=== PATIENT | female | born 1990 | race Caucasian/White ===

== ENCOUNTER → 2017-12-24 10:32 | Outpatient (CLI) | payer OTHER, SELFPAY ==
[2017-12-24 12:56] LABS: hCG Titer Quant., Serum 152 mIU/mL (<9 non-preg)
== END ==
PROVIDERS: Visit Provider Obstetrics & Gynecology
DX: O20.0 Threatened abortion (principal)
CPT/HCPCS: 36415; 84702

== ENCOUNTER → 2017-12-26 16:05 | Outpatient (CLI) | payer OTHER, SELFPAY ==
[2017-12-26 17:28] LABS: hCG Titer Quant., Serum 34 mIU/mL (<9 non-preg)
== END ==
PROVIDERS: Visit Provider Obstetrics & Gynecology
DX: O20.0 Threatened abortion (principal)
CPT/HCPCS: 36415; 84702

== ENCOUNTER → 2018-07-12 15:16 | Outpatient (CLI) | payer OTHER, SELFPAY ==
[2018-07-12 14:35] VITALS: BMI 20.3
[2018-07-12 16:12] LABS: Absolute Lymphocyte Count 2.26 X10^3/ul (0.83-4.51); Absolute Neutrophil Count 6.8 X10^3/uL (2.0-7.7); Basophil# 0.02 X10^3/uL; Basophil% 0.2 % (0-1); Eosinophil# 0.12 X10^3/uL; Eosinophils% 1.2 % (0-5); Hematocrit 38.3 % (37-47); Hemoglobin 13.8 g/dl (12.0-15.0); Lymphocyte # 2.26 X10^3/ul (4.0); Lymphocyte % 22.3 % (19-41); Mean Corpuscular Hgb 32.1 pg (27.0-32.0); Mean Corpuscular Volume 89.1 fL (81-99); Mean Platelet Vol. 9.3 fl (6.2-12.0); Monocyte% 8.9 % (0-10); Platelet Count 197 K/mm3 (150-450); RBC Distribution Width CV 11.2 % (11.6-14.6); RBC Distribution Width SD 35.3 fl (35.1-43.9); White Blood Count 10.1 K/mm3 (4.4-11.0)
[2018-07-12 16:28] LABS: POSITIVE COUNT NO; POSITIVE DIFFERENTIAL NO; POSITIVE MORPHOLOGY NO
[2018-07-12 17:04] LABS: HIV - WCH Non-Reactive (Nonreactive); Rubella IgG 394.3 IU/mL
[2018-07-12 20:50] LABS: Chlamydia Trachomatis by PCR Negative (Negative); Neisserai gonorrhoeae by PCR Negative (Negative); Probe Check PASS; Sample Adequacy Control PASS; Specimen Processing Control PASS
[2018-07-15 14:29] LABS: HEPATITIS B SURFACE AG Negative (Negative)
[2018-07-19 04:54] LABS: Rapid Plasmin Reagin (RPR) NONREACTIVE (NONREACTIVE)
== END ==
PROVIDERS: Referring Provider Obstetrics & Gynecology; Visit Provider Obstetrics & Gynecology
DX: Z34.90 Encounter for supervision of normal pregnancy, unspecified, unspecified trimester (principal)
CPT/HCPCS: 36415; 85025; 86592; 86703; 86762; 86850; 86900; 87086; 87088; 87340; 87491; 87591

== ENCOUNTER → 2018-08-08 16:57 | Outpatient (CLI) | payer OTHER, SELFPAY ==
[2018-08-08 15:58] VITALS: BMI 20.3
== END ==
PROVIDERS: Referring Provider Nurse Practitioner Women's Health; Visit Provider Nurse Practitioner Women's Health
DX: R82.79 Other abnormal findings on microbiological examination of urine (principal)
CPT/HCPCS: 87086

== ENCOUNTER → 2018-11-08 11:26 | Outpatient (CLI) | payer OTHER, SELFPAY ==
[2018-11-08 11:04] VITALS: BMI 20.3
[2018-11-08 12:41] LABS: Absolute Lymphocyte Count 1.72 X10^3/ul (0.83-4.51); Absolute Neutrophil Count 7.7 X10^3/uL (2.0-7.7); Basophil# 0.01 X10^3/uL; Basophil% 0.1 % (0-1); Eosinophil# 0.08 X10^3/uL; Eosinophils% 0.8 % (0-5); Hematocrit 33.7 % (37-47); Hemoglobin 11.4 g/dl (12.0-15.0); Lymphocyte # 1.72 X10^3/ul (4.0); Lymphocyte % 16.3 % (19-41); Mean Corp Hgb Conc 33.8 g/gl (32-36); Mean Corpuscular Hgb 32.1 pg (27.0-32.0); Mean Corpuscular Volume 94.9 fL (81-99); Mean Platelet Vol. 9.4 fl (6.2-12.0); Monocyte# 0.99 X10^3/uL; Monocyte% 9.4 % (0-10); Neutrophil # 7.69 X10^3/uL (2.7-7.7); Neutrophil % 73.1 % (47-70); Platelet Count 161 K/mm3 (150-450); RBC Distribution Width CV 11.6 % (11.6-14.6); RBC Distribution Width SD 39.9 fl (35.1-43.9); Red Blood Count 3.55 M/mm3 (4.2-5.4); White Blood Count 10.5 K/mm3 (4.4-11.0)
[2018-11-08 12:43] LABS: POSITIVE COUNT NO; POSITIVE DIFFERENTIAL NO; POSITIVE MORPHOLOGY NO
[2018-11-08 13:04] LABS: Glucose Challenge Gest 1H 50g 99 mg/dL (70-140)
== END ==
PROVIDERS: Referring Provider Obstetrics & Gynecology; Visit Provider Obstetrics & Gynecology
DX: Z34.92 Encounter for supervision of normal pregnancy, unspecified, second trimester (principal)
CPT/HCPCS: 36415; 82950; 85025; 86850; 86900

== ENCOUNTER → 2019-01-09 | Outpatient (CLI) | payer OTHER, SELFPAY ==
[2019-01-09 10:25] VITALS: BMI 20.3
== END | disposition home or self-care (01) ==
LOC: LABSPEC 16:27
PROVIDERS: Referring Provider Nurse Practitioner Women's Health; Visit Provider Nurse Practitioner Women's Health
DX: Z34.90 Encounter for supervision of normal pregnancy, unspecified, unspecified trimester (principal)
CPT/HCPCS: 87081

== ENCOUNTER 2019-02-09 06:09 | Inpatient (IN) | payer OTHER, SELFPAY ==
[2019-02-07 11:37] VITALS: BMI 25.0
[2019-02-09 04:39] VITALS: BMI 25.5
[2019-02-09] MEDS: Lactated Ringers 1,000 ML 50 ML IV ×2 (06:15→08:04)
[2019-02-09 07:10] LABS: Absolute Lymphocyte Count 1.22 X10^3/ul (0.83-4.51); Absolute Neutrophil Count 10.5 X10^3/uL (2.0-7.7); Basophil# 0.01 X10^3/uL; Basophil% 0.1 % (0-1); Eosinophil# 0.02 X10^3/uL; Eosinophils% 0.2 % (0-5); Hematocrit 31.6 % (37-47); Hemoglobin 10.2 g/dl (12.0-15.0); Lymphocyte # 1.22 X10^3/ul (4.0); Lymphocyte % 9.4 % (19-41); Mean Corp Hgb Conc 32.3 g/gl (32-36); Mean Corpuscular Hgb 25.7 pg (27.0-32.0); Mean Corpuscular Volume 79.6 fL (81-99); Mean Platelet Vol. 9.4 fl (6.2-12.0); Monocyte# 1.22 X10^3/uL; Monocyte% 9.4 % (0-10); Neutrophil # 10.48 X10^3/uL (2.7-7.7); Neutrophil % 80.6 % (47-70); Platelet Count 165 K/mm3 (150-450); RBC Distribution Width CV 13.8 % (11.6-14.6); RBC Distribution Width SD 39.9 fl (35.1-43.9); Red Blood Count 3.97 M/mm3 (4.2-5.4)
[2019-02-09 07:17] LABS: POSITIVE COUNT NO; POSITIVE DIFFERENTIAL NO; POSITIVE MORPHOLOGY NO
--- NOTE | 2019-02-09 07:30 | PCM.HP.OB ---
- Problem List (1) Rh negative state in antepartum period Status: Acute Comment: rhogam at 28 weeks (2) Status: Acute Qualifiers: Comment: carrier, genetic, and ntd screening declined. normal anatomy scan. (3) Supervision of normal Status: Acute Qualifiers: Comment: PRR 02/06/19 boy surprise Yaya History Date of Admission: 02/09/19 Final JARRED: 02/06/19 Gestational age: 40 Weeks and 3 Days History of this : This is a 28 year-old, at 40 weeks gestational age presents IAL 5 cm dilated. she denies any lof admits good fm. Allergies No Known Allergies Allergy (Verified 02/09/19 04:40) Home Medications: Home Medications vitamin#30 30 mg iron-10 mg iron-folic acid 1 mg-omg3 capsule 1 cap PO DAILY cap 07/12/18 Smoking Status: Never smoker Alcohol: None Number of Fetus(es): 1 Heart Tracin moderate variability reactive no decelerations category I tracing [place]: regular History Past Pregnancies: Past Pregnancies Delivery Date Name GA/Weeks Outcome Route Weight Gender Labor Length Anesthesia Delivery Location Provider FOB Labs: Mom's Labs & Results 02/09/19 02/09/19 06:25 06:25 WBC 13.0 H RBC 3.97 L Hgb 10.2 L Hct 31.6 L MCV 79.6 L MCH 25.7 L MCHC 32.3 RDW 13.8 RDW Differential 39.9 Plt Count 165 MPV 9.4 Immature Gran % (Auto) 0.300 Neut % (Auto) 80.6 H Lymph % (Auto) 9.4 L Allen % (Auto) 9.4 Eos % (Auto) 0.2 Baso % (Auto) 0.1 Absolute Neuts (auto) 10.5 H Absolute Lymphs (auto) 1.22 Total Counted Not Reportable Blood Type Pending Antibody Screen Pending Course Did the patient receive Yes care? Labs Blood Type: O RH: NEGATIVE RPR/VDRL/Syphilis Nonreactive Rubella status Immune HbSAg Negative Date Done: 07/12/18 Chlamydia Negative Gonorrhea Negative HIV/AIDS Non-Reactive Group B Strep: Negative Current Obstetrical History Gestational Diabetes No Incompetent Cervix No Infertility No IUGR No Macrosomia No Hypertension/Pre-eclampsia No Placenta Previa/Abruption No PTL/PROM No Uterine anomaly No Oligohydramnios No Polyhydramnios No Multiple gestation No Past Medical History Asthma No Diabetes No Hypertension No Heart disease No Mitral valve prolapse No Neurologic/Seizure disorder/ No Migraines Kidney disease No Liver disease No Varicosities No Clotting disorders/Hx of DVT No Thyroid Dysfunction No Other medical diseases No Psychiatric disorders No Major trauma No Abnormal PAP smear No Sleep apnea No Mammogram in the last 2 years No Social History Marital Status: Alleged father Yaya Dickson Hx Smoking No Smoking Status Never smoker Expected Delivery Method: Spontaneous Vaginal Review of Systems Constitutional: Denies: Fever, Malaise Eyes: Denies: Blurred vision, Vision Change HEENT: Denies: Head Aches, Visual Changes Cardiovascular: Denies: Chest Pain, Palpitations Respiratory: Denies: Cough, Shortness of Breath, Wheezing Gastrointestinal: Denies: Abdominal Pain, Diarrhea, Nausea, Vomiting Genitourinary: Denies: Dysuria, Hematuria Musculoskeletal: Denies: Joint Pain, Muscle pain Skin: Denies: Lesions, Rash Neurological: Denies: Blurred vision, Focal weakness, Headaches Psychiatric: Denies: Anxiety, Depression Endocrine: Denies: Heat/ Cold Intolerance Hematologic/ Lymphatic: Denies: Easy Bruising, Easy Bleeding Physical Exam General: Alert, Cooperative, No apparent distress HEENT: Atraumatic, Normocephalic. Negative for: Thyromegaly, Lymphadenopathy Cardiovascular: Regular rate Lungs: Normal air movement Abdomen: Soft, Non Tender, Gravid Neurological: Deep Tendon Reflexes 2+/4 and Symmetrical, Neuro grossly intact. Negative for: Clonus SERVICE LINE COORDINATOR: Normal external genitalia. Negative for: Vulvar lesions Estimated gestational size: Appropriate for gestational size Presentation: Cephalic Cervix Dilation (cm): 5 Assessment/Plan All Active Problems (Last Reviewed 02/07/19 @ 11:37 by Luciana Durant) Urine culture positive (Acute) Rh negative state in antepartum period (Acute) (Acute) Supervision of normal (Acute) Normal Anatomy scan (Resolved) This is a 28 year-old, at 40 weeks gestational age prsents IAL. Patient presents IAL, plan expectant management for , pitocin/AROM PRN if needed. Pain management: Plans epidural. GBS negative. Management of any complications: Rh- will give RhoGam if indicated I have reviewed the [facility] and made any clinically relevant updates.
[2019-02-09] MEDS: fentaNYL-bupivacaine (epidural) 100 ML BAG EPIDURAL (08:03)
--- NOTE | 2019-02-09 12:44 | PCM.OPRPT ---
Problem List (1) Rh negative state in antepartum period Status: Acute Comment: rhogam at 28 weeks (2) Status: Acute Qualifiers: Comment: carrier, genetic, and ntd screening declined. normal anatomy scan. (3) Supervision of normal Status: Acute Qualifiers: Comment: PRR 02/06/19 boy surprise Yaya Vaginal Delivery Maternal Presentation: Active Labor 40w3d Amniotic Membrane Rupture Type: Artificial Amniotic Fluid Description: Clear Final JARRED: 02/06/19 Gestational age: 40 Weeks and 3 Days Date of Procedure: 02/09/19 Pre-Operative Diagnosis: ial Post-Operative Diagnosis: same Surgery/ Procedure Performed: Spontaneous Vaginal Delivery Type of Anesthesia: Epidural Description of Procedure: Patient began pushing and delivered the head in the NENA presentation. The head was delivered atraumatically. The anterior and posterior shoulders delivered without complication followed by the rest of the infant and the was placed on the maternal abdomen. Delayed cord clamping was employed for approximately 60 seconds. Cord was clamped and cut and gentle traction was applied to the cord and the placenta delivered spontaneously immediately following it was noted to be intact with three-vessel cord. The perineum and vagina were inspected and noted to have a first degree perineal laceration repaired in the usual fashion with 3-0 vicryl rapide. EBL was 300 cc. Patient and tolerated delivery well. Presentation: NENA Placental Delivery Description: Spontaneous Placenta Disposition: [facility] Cord Entanglement: None Estimated Blood Loss: 300 Infant A gender: Male Episiotomy Description: None Laceration: Perineal Extension/lac, 1st degree Medications given after delivery: IV Pitocin Complications: None
[2019-02-09] MEDS: Oxytocin 30 units/NS 500 ml 30 UNITS/500 ML IV.SOLN 334 UNITS IV (13:25)
[2019-02-09] MEDS: Oxytocin 30 units/NS 500 ml 30 UNITS/500 ML IV.SOLN 167 UNITS IV (13:55)
[2019-02-09] MEDS: 0.9% Saline Lock 10 ML Syringe IV (15:00)
[2019-02-09 20:00] VITALS: BP 120/75; PULSE 69; RESP 16; TEMP 37
[2019-02-09] MEDS: Naproxen 250 MG Tablet 500 MG PO (23:29)
[2019-02-09 23:30] VITALS: BP 103/63; PULSE 75; RESP 16; TEMP 37.4
[2019-02-10 04:00] VITALS: BP 122/68; PULSE 77; RESP 16; TEMP 36.9
--- NOTE | 2019-02-10 07:36 | PCM.PN.OB ---
Subjective: doing well no complaints pain controlled no CP SOB N V ambulating well tolerating po lochia moderate, going well - Physical Exam General: Alert, Oriented x3 Abdomen: Soft, Non Tender, Non-Distended, - - FF at U; normal lochia Vital Signs Temp Pulse Resp BP 98.4 F 77 16 122/68 H 02/10/19 04:00 02/10/19 04:00 02/10/19 04:00 02/10/19 04:00 Weight: 158 lb 3.2 oz Body Mass Index (BMI) 25.5 Intake and Output for Last 24 Hours 02/08/19 02/09/19 02/10/19 23:59 23:59 23:59 Intake Total 2460 / 2460 Output Total 2400 / 2400 Balance 60 / 60 Laboratory Tests Past 24 Hrs 02/09/19 02/09/19 06:25 17:05 Blood Type O NEGATIVE Antibody Screen NEGATIVE Screen NEGATIVE Baby's Blood Type O POSITIVE Baby's JEROD NEGATIVE Medical Necessity - Tobacco Use Smoking Status: Never smoker Assessment/Plan All Active Problems (Last Reviewed 02/07/19 @ 11:37 by Luciana Durant) Urine culture positive (Acute) Rh negative state in antepartum period (Acute) (Acute) Supervision of normal (Acute) Normal Anatomy scan (Resolved) s/p PPD # 2 1. routine post delivery care 2. breast feeding- support given 3. rh negative-rhogam candidate 4. rubella immune
[2019-02-10 08:00] VITALS: BP 112/77; PULSE 71; RESP 14; TEMP 36.4
[2019-02-10] MEDS: Naproxen 250 MG Tablet 500 MG PO (08:23)
[2019-02-10] MEDS: Senna/Docusate Sodium 1 Tablet PO (10:40)
[2019-02-10 11:44] VITALS: BP 110/76; PULSE 125; RESP 14; TEMP 36.7
[2019-02-10] MEDS: Acetaminophen 500 MG Tablet 1000 MG PO (15:42)
[2019-02-10 20:25] VITALS: BP 114/73; PULSE 61; RESP 18; TEMP 37.3
[2019-02-11 02:20] VITALS: BP 114/63; PULSE 63; RESP 18; TEMP 36.9
--- NOTE | 2019-02-11 07:38 | PCM.PN.OB ---
Subjective: doing well no complaints pain controlled no CP SOB N V ambulating well tolerating po lochia moderate, going well - Physical Exam General: Alert, Oriented x3 Abdomen: Soft, Non Tender, Non-Distended, - - FF below U Vital Signs Temp Pulse Resp BP 98.4 F 63 18 114/63 02/11/19 02:20 02/11/19 02:20 02/11/19 02:20 02/11/19 02:20 Oxygen Delivery Method Room Air Weight: 158 lb 3.2 oz Body Mass Index (BMI) 25.5 Intake and Output for Last 24 Hours 02/09/19 02/10/19 02/11/19 23:59 23:59 23:59 Intake Total 2460 / 2460 Output Total 2400 / 2400 Balance 60 / 60 Medical Necessity - Tobacco Use Smoking Status: Never smoker Assessment/Plan All Active Problems (Last Reviewed 02/07/19 @ 11:37 by Luciana Durant) Urine culture positive (Acute) Rh negative state in antepartum period (Acute) (Acute) Supervision of normal (Acute) Normal Anatomy scan (Resolved) s/p PPD # 2 1. routine post delivery care 2. breast feeding- support given 3. rh negative 4. rubella immune 5. Home today
--- NOTE | 2019-02-11 07:39 | DCINST_ITS ---
Additional Instructions: If you experience any of the following, contact your healthcare provider. * Bleeding that soaks a pad every hour for 2 hours * Fever 100.4 or higher * Unrelieved incision or abdominal pain * Swelling, redness, discharge or bleeding from your incision or episiotomy site * Your incision begins to separate * Problems urinating (including inability to urinate or burning while urinating). * Visual changes * Severe headache * Flu-like symptoms * Pain or redness in one of both of your breasts * Pain, warmth, tenderness or swelling in your legs, especially the calf area * Frequent nausea and vomiting * Symptoms of depression or anxiety If you experience any of the following, call 911 or go to the nearest Emergency Room. * Chest pain * Problems breathing * Seizure activity * Partial or complete paralysis of a body part, slurred speech, weakness or drooping of the face, or a sudden inability to walk or hold your balance Allergies/Adverse Reactions: Allergies No Known Allergies Allergy (Verified 02/09/19 04:40) Medications to take at Discharge vitamin#30 30 mg iron-10 mg iron-folic acid 1 mg-omg3 capsule 1 cap PO DAILY cap 07/12/18 Primary Care Physician: Care Physician,No Primary [Primary Care Provider] - Test Results: Test results from this visit will be discussed in further detail at your follow- up appointment, if applicable.
--- NOTE | 2019-02-11 07:39 | PCM.DCVAG ---
Additional Instructions: If you experience any of the following, contact your healthcare provider. Bleeding that soaks a pad every hour for 2 hours Fever 100.4 or higher Unrelieved incision or abdominal pain Swelling, redness, discharge or bleeding from your incision or episiotomy site Your incision begins to separate Problems urinating (including inability to urinate or burning while urinating). Visual changes Severe headache Flu-like symptoms Pain or redness in one of both of your breasts Pain, warmth, tenderness or swelling in your legs, especially the calf area Frequent nausea and vomiting Symptoms of depression or anxiety If you experience any of the following, call 911 or go to the nearest Emergency Room. Chest pain Problems breathing Seizure activity Partial or complete paralysis of a body part, slurred speech, weakness or drooping of the face, or a sudden inability to walk or hold your balance Allergies/Adverse Reactions: Allergies No Known Allergies Allergy (Verified 02/09/19 04:40) Medications to take at Discharge vitamin#30 30 mg iron-10 mg iron-folic acid 1 mg-omg3 capsule 1 cap PO DAILY cap 07/12/18 Primary Care Physician: Care Physician,No Primary [Primary Care Provider] - Test Results: Test results from this visit will be discussed in further detail at your follow-up appointment, if applicable.
[2019-02-11] MEDS: Senna/Docusate Sodium 1 Tablet PO (08:51)
[2019-02-11] MEDS: Naproxen 250 MG Tablet 500 MG PO (08:52)
[2019-02-11 08:55] VITALS: BP 112/67; PULSE 73; RESP 20; TEMP 37.4; O2SAT 99
== END 2019-02-11 11:00 | disposition home or self-care (01) | DRG 807 ==
LOC: WP 06:17 → WPOUT 02-11 07:26
PROVIDERS: Admitting Provider Obstetrics & Gynecology; Referring Provider Obstetrics & Gynecology; Visit Provider Obstetrics & Gynecology
DX: O48.0 Post-term pregnancy (principal); Z37.0 Single live birth; Z3A.40 40 weeks gestation of pregnancy; O70.0 First degree perineal laceration during delivery
CPT/HCPCS: 59025; 59050; 85025; 85461; 86850; 86900; 90384; 99218; J7120; A4216; G0378; J2790

== ENCOUNTER → 2019-11-25 | Outpatient (CLI) | payer OTHER, SELFPAY ==
[2019-11-25 09:19] VITALS: BMI 25.5
[2019-11-25 09:52] LABS: Absolute Lymphocyte Count 1.37 X10^3/uL (0.83-4.51); Absolute Neutrophil Count 4.2 X10^3/uL (2.0-7.7); Basophil# 0.02 X10^3/uL; Basophil% 0.3 % (0-1); Eosinophil# 0.14 X10^3/uL; Eosinophils% 2.2 % (0-5); Hematocrit 38.1 % (37-47); Hemoglobin 13.1 g/dL (12.0-15.0); Lymphocyte # 1.37 X10^3/ul (4.0); Lymphocyte % 21.6 % (19-41); Mean Corp Hgb Conc 34.4 g/dL (32-36); Mean Corpuscular Hgb 30.9 pg (27.0-32.0); Mean Corpuscular Volume 89.9 fL (81-99); Mean Platelet Vol. 8.9 fl (6.2-12.0); Monocyte# 0.57 X10^3/uL; NRBC Flagged by Analyzer 0 % (0-5); Neutrophil # 4.24 X10^3/uL (2.7-7.7); Neutrophil % 66.7 % (47-70); Platelet Count 151 K/mm3 (150-450); RBC Distribution Width CV 11.9 % (11.6-14.6); RBC Distribution Width SD 38.7 fl (35.1-43.9); Red Blood Count 4.24 M/mm3 (4.2-5.4); White Blood Count 6.4 K/mm3 (4.4-11.0)
[2019-11-25 11:06] LABS: HIV - WCH Non-Reactive (Nonreactive); Hepatitis B Surface Antigen Non-Reactive (Nonreactive); Hepatitis C Antibody Non-Reactive (Nonreactive); Rubella IgG 263.1 IU/mL
[2019-11-25 13:06] LABS: Amphetamine Urine VISTA NEGATIVE (<1000 ng/mL); Barbiturate Urine VISTA NEGATIVE (< 200 ng/mL); Benzodiazepine Urine VISTA NEGATIVE (< 200 ng/mL); Cocaine Urine VISTA NEGATIVE (< 300 ng/mL); Ecstacy Urine VISTA NEGATIVE (< 500 ng/mL); Methadone Urine VISTA NEGATIVE (< 300 ng/mL); PCP Urine VISTA NEGATIVE (< 25 ng/mL); THC Urine VISTA NEGATIVE (< 50 ng/mL); Vista UDS pH Range 7
[2019-11-25 16:25] LABS: Chlamydia Trachomatis by PCR Negative (Negative); Neisserai gonorrhoeae by PCR Negative (Negative); Probe Check PASS; Sample Adequacy Control PASS; Specimen Processing Control PASS
[2019-11-28 09:37] LABS: HPV Reflexed? NOT INDICATED
== END | disposition home or self-care (01) ==
PROVIDERS: Referring Provider Obstetrics & Gynecology; Visit Provider Obstetrics & Gynecology
DX: Z34.80 Encounter for supervision of other normal pregnancy, unspecified trimester (principal)
CPT/HCPCS: 36415; 80307; 85025; 86703; 86762; 86803; 86850; 86900; 86901; 87086; 87088; 87340; 87491; 87591; 88175; G0145

== ENCOUNTER → 2020-01-21 | Outpatient (CLI) | payer OTHER, SELFPAY ==
[2019-11-25 09:19] VITALS: BMI 25.5
--- NOTE | 2020-01-21 16:01 | US_ITS ---
STUDY: SECOND AND THIRD TRIMESTER OBSTETRICAL ULTRASOUND REASON FOR EXAM: Female, 29 years old ANATOMY LMP: September 10, 2019. TECHNIQUE: Transabdominal TECHNICAL QUALITY: Adequate. PRIOR ULTRASOUND: None. FINDINGS: There is a single intrauterine fetus. The fetus is in a breech presentation. There is demonstrated cardiac activity with a heart rate of 143/167 bpm. There is a normal amniotic fluid volume. The largest amniotic fluid pocket measures 3.5 cm x 4.3 cm. The amniotic fluid index (ROMA) is within normal limits. The placenta is posterior in location and is not low lying. There are Grade 1 placental changes. The cervix measures 3.2 cm in length. The bilateral adnexal regions are normal. BIOMETRY: BPD: 4.29 cm: 19 weeks, 0 days HC: 16.72 cm: 19 weeks, 3 days AC: 14.82 cm: 20 weeks, 1 days FL: 2.98 cm: 19 weeks, 2 days CI: 74% FL/BPD: 69% FL/HC: FL/AC: 20% HC/AC: 1.13 age by current US: 19 weeks, 4 days. JARRED by current US: June 12, 2020. Estimated weight: 303 grams, +/- 44 grams, 81 %. Age by LMP: 19 weeks, 0 days. JARRED by LMP: June 16, 2020. ANATOMY: Gender: Male Cranium: Normal lateral ventricles. Normal choroid plexus. Normal cerebellum. Normal cisterna magna. Normal face, nose and lips. Chest: Normal 4-chamber heart. Abdomen/Pelvis: Normal diaphragm. Normal stomach. Normal abdominal wall. Normal cord insertion. Normal 3 vessel cord. Normal kidneys. Normal bladder. Spine: Normal cervical spine. Normal thoracic spine. Normal lumbar spine. Normal sacrum. Extremities: Normal bilateral upper extremities. Normal bilateral lower extremities. US/OB Anatomy Scan IMPRESSION: Single live intrauterine gestation with a mean gestational age of 19 weeks and 4 days. Electronically Signed: Dionicio Bernard, at 8:30 EDT , Service support ,
== END | disposition home or self-care (01) ==
PROVIDERS: Referring Provider Nurse Practitioner Women's Health; Visit Provider Nurse Practitioner Women's Health
DX: Z34.80 Encounter for supervision of other normal pregnancy, unspecified trimester (principal)
CPT/HCPCS: 76805

== ENCOUNTER → 2020-03-26 | Outpatient (CLI) | payer OTHER, SELFPAY ==
[2020-03-02 12:55] VITALS: BMI 25.5
[2020-03-26 13:46] LABS: Absolute Lymphocyte Count 1.68 X10^3/uL (0.83-4.51); Absolute Neutrophil Count 7.9 X10^3/uL (2.0-7.7); Basophil# 0.02 X10^3/uL; Basophil% 0.2 % (0-1); Eosinophil# 0.07 X10^3/uL; Eosinophils% 0.7 % (0-5); Hematocrit 37.4 % (37-47); Hemoglobin 12.8 g/dL (12.0-15.0); Lymphocyte # 1.68 X10^3/ul (4.0); Lymphocyte % 16.1 % (19-41); Mean Corp Hgb Conc 34.2 g/dL (32-36); Mean Corpuscular Hgb 32.8 pg (27.0-32.0); Mean Corpuscular Volume 95.9 fL (81-99); Mean Platelet Vol. 9.5 fl (6.2-12.0); Monocyte% 7.6 % (0-10); NRBC Flagged by Analyzer 0 % (0-5); Neutrophil # 7.85 X10^3/uL (2.7-7.7); Platelet Count 166 K/mm3 (150-450); RBC Distribution Width CV 11.5 % (11.6-14.6); RBC Distribution Width SD 40.1 fl (35.1-43.9); White Blood Count 10.5 K/mm3 (4.4-11.0)
[2020-03-26 14:06] LABS: Glucose Challenge Gest 1H 50g 124 mg/dL (70-140)
== END | disposition home or self-care (01) ==
PROVIDERS: Referring Provider Obstetrics & Gynecology; Visit Provider Obstetrics & Gynecology
DX: Z34.90 Encounter for supervision of normal pregnancy, unspecified, unspecified trimester (principal)
CPT/HCPCS: 36415; 82950; 85025; 86850; 86900; 86901

== ENCOUNTER → 2020-05-27 | Outpatient (CLI) | payer OTHER, SELFPAY ==
[2020-05-27 11:27] VITALS: BMI 24.8
== END | disposition home or self-care (01) ==
LOC: LABSPEC 13:15
PROVIDERS: Referring Provider Obstetrics & Gynecology; Visit Provider Obstetrics & Gynecology
DX: Z34.90 Encounter for supervision of normal pregnancy, unspecified, unspecified trimester (principal)
CPT/HCPCS: 87081

== ENCOUNTER 2020-06-13 01:34 | Inpatient (IN) | payer OTHER, SELFPAY ==
[2020-06-11 09:36] VITALS: BMI 25.0
[2020-06-13] VITALS (36 sets, daily range): BP systolic 90–117; BP diastolic 57–73; PULSE 68–110; RESP 16; TEMP 36.2–37.4; O2SAT 96–99; BMI 25.4
[2020-06-13] MEDS: Lactated Ringers 1,000 ML 50 ML IV (01:47)
[2020-06-13] MEDS: Lactated Ringers 500 ML 999 ML IV (01:47)
[2020-06-13 02:00] LABS: Absolute Neutrophil Count 9.6 X10^3/uL (2.0-7.7); Basophil# 0.02 X10^3/uL; Basophil% 0.2 % (0-1); Eosinophil# 0.04 X10^3/uL; Eosinophils% 0.3 % (0-5); Hematocrit 35.9 % (37-47); Hemoglobin 11.7 g/dL (12.0-15.0); Lymphocyte % 13.4 % (19-41); Mean Corp Hgb Conc 32.6 g/dL (32-36); Mean Corpuscular Hgb 29.4 pg (27.0-32.0); Mean Corpuscular Volume 90.2 fL (81-99); Mean Platelet Vol. 10.1 fl (6.2-12.0); Monocyte# 1.21 X10^3/uL; Monocyte% 9.5 % (0-10); NRBC Flagged by Analyzer 0 % (0-5); Neutrophil # 9.64 X10^3/uL (2.7-7.7); Platelet Count 170 K/mm3 (150-450); RBC Distribution Width CV 11.9 % (11.6-14.6); RBC Distribution Width SD 38.9 fl (35.1-43.9); Red Blood Count 3.98 M/mm3 (4.2-5.4); White Blood Count 12.7 K/mm3 (4.4-11.0)
[2020-06-13] MEDS: fentaNYL-bupivacaine (epidural) 100 ML BAG EPIDURAL ×2 (02:50→03:00)
[2020-06-13] MEDS: Oxytocin 30 units/NS 500 ml 30 UNITS/500 ML IV.SOLN 334 UNITS IV (05:05)
--- NOTE | 2020-06-13 05:15 | PCM.HPOB.BLA ---
- Problem List (1) Active labor at term Status: Acute (2) 37 weeks gestation of Status: Acute Comment: covid testing ordered 05/26/20c (scheduled 06/11/2020 at 09:55) (3) Influenza vaccination declined Status: Acute (4) Status: Acute Qualifiers: Comment: Declined genetic, carrier, and ntd screening. [facility] US only. 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 Madisyn Fall MD) Smoking Status: Never smoker alcohol intake: never substance use type: does not use caffeine: Yes what type of physical activity do you participate in: walking seatbelt use: always do you feel safe at home: Yes additional social history: Yaya Pregancy History 3 Elective abortions Hx Para 1 Spontaneous abortions Hx # Term Pregnancies 1 Ectopic pregnancies Hx # Pregnancies Multiple births # of living children 1 Past Pregnancies Del. Date Name GA/Weeks Outcome Route Bth Weight Infant Gen Labor Lgth Anesthesia Del Locatn Provider FOB 02/09/19 Tone 40 live - full term 8lbs 3oz Male 15 hours epidural [facility] Marcanthony Delivery Date: 02/09/19 no complications Norma Lozano HPI 39wk ob : Details: SAVAGE IBRAHIM is a 30 year old at 39/4 who presents in active labor OB Visit JARRED Calculator Estimated Delivery Date Method Current WG Current Estimate 06/16/20 LMP (Certain) 39w 2d Other Estimates 06/10/20 Ultrasound #1 40w 1d Expected Delivery Route/Plan Labor Preferences- labor support person: Yaya pain management options preferred: epidural cut cord/dad catch: cord only : yes PP control planned: discussed possible routes of delivery and associated risks: discussed possible delivery modalities and possible indications for each including R/B/A of , VAVD, FAVD, and CS. questions answered. special requests: Specific Issue/Plans flu vaccine: dec tdap vaccine: dec rhogam: 03/26 LARC form signed: declined movement and labor precautions reviewed. Problem list reviewed and updated with the most current plan of care details and appropriate orders placed. Relevant counseling for the gestational age provided. Continue routine care and follow up unless otherwise noted in visit notes/problem list details Initial Weight: 130 lb Date EGA Weight BP Urine Prot Glucose FHR FuHt Pres Dilation Effaced St Visit Note 01/27/20 19w 6d 135 lb 2 oz (+5 lb 2 oz) 120/62 Negative Negative 148 MH-NO Vb, LOF. Feeling movement now. Nl anatomy US last week boy. 03/02/20 24w 6d 138 lb (+8 lb) 116/80 Negative Negative 145 25 SM-no vb lof good fm n oregular ctx 03/26/20 28w 2d 142 lb (+12 lb) 112/70 145 28 SM- no vb lof good fm no regular ctx. declined tdap. cbc gct today 04/13/20 30w 6d 144 lb 8 oz (+14 lb 8 oz) 112/68 Negative Negative 140 30 SM- dec flu. no vb lof good fm no regular ctx discussed covid testing 04/27/20 32w 6d 148 lb 4 oz (+18 lb 4 oz) 114/74 Negative Negative 155 32 GP - no LOF, VB, DFM, Ctx. Discussed labor pain control. 05/14/20 35w 2d 151 lb (+21 lb) 122/70 Negative Negative 145 34 SM- no vb lof good fm no regular ctx 05/27/20 37w 1d 154 lb (+24 lb) 118/66 Negative Negative 150 37 Cephalic 2 -1 SM- no vb lof good fm no regular ctx gbs collected 06/04/20 38w 2d 154 lb (+24 lb) 110/80 Negative Negative 140 36 Cephalic 2 0 SM- discussed FH, patient requesting to wait for US due to cost- reviewed kick counts, fu next week with us if lower FH 06/11/20 39w 2d 155 lb 4 oz (+25 lb 4 oz) 112/74 145 37 Cephalic 2 60 0 GP - More cramping. No LOF, VB, DFM, reg ctx. Discussed still measuring small declines US because too high of out of pocket costs. Agreeable to in office assessment of well-being. ROMA done in office today and is normal. ACOG First Trimester First Trimester: Desire for , Alcohol, Tobacco Cessation, Illicit/Recreational Drug/Substance Use, Intimate Partner Violence, Barriers to care, Unstable Housing, Communication Barriers, Environmental/Work Hazards, Anticipated Course of Care, Toxoplasmosis Precations, Use of Any medications, Sexual activity, Exercise, Dental Care, Sauna/Hot tub use, Seat Belt use, Childbirth classes/Hospital facilities, , Travel, Indications for US and Screening for Aneuploidy Diagnostics Diagnostics Diagnostics Blood Type O NEGATIVE 03/26/20 Antibody Screen NEGATIVE 03/26/20 Glucose 1 Hr 50 gm 124 mg/dL (70-140) 03/26/20 HIV 1&2 Antibody Non-Reactive (Nonreactive) 11/25/19 Rubella IgG Antibody 263.1 IU/mL 11/25/19 Hgb 12.8 g/dL (12.0-15.0) 03/26/20 Hct 37.4 % (37-47) 03/26/20 Details: HIV: Urine Culture: Sequential Screen: NIPT Screen: ROS ROS Const Reports system reviewed and no additional complaints, except as documented Card Reports system reviewed and no additional complaints, except as documented Resp Reports system reviewed and no additional complaints, except as documented GI Reports system reviewed and no additional complaints, except as documented, Reports nausea Reports system reviewed and no additional complaints, except as documented Musc Reports system reviewed and no additional complaints, except as documented all other systems reviewed and negative Exam Const General: cooperative, healthy appearing, comfortable, no acute distress, well developed, well groomed Nutritional Appearance: average body habitus, well nourished Orientation: alert, awake, oriented x3 HENMT Head: normal to inspection, normocephalic, atraumatic Eyes Pupils: PERRL, accommodation normal Resp Effort & Inspection: normal respiratory effort, able to speak in complete sentences, symmetric chest movement Cardio Rate: regular rate GI Palpation: soft, no guarding, no masses, nontender Skin General: no rashes or lesions noted, elasticity normal, turgor normal Neuro General: alert, awake, oriented x3 Cranial Nerves: CN's II-XI intact bilaterally, sense of smell intact, PERRL, accommodation normal, EOM intact bilaterally Speech: speech normal Gait: normal gait Psych Appearance: grossly normal, well kempt Mental Status: mental status grossly normal Mood: congruent mood Affect: normal affect Speech and Movement: speech and movement normal Attitude: cooperative Thought Process: normal Thought Content: normal Judgment: judgment good Assessment & Plan Problems 1. 37 weeks gestation of Z3A.37 covid testing ordered 20sc (scheduled 06/11/2020 at 09:55) 2. Influenza vaccination declined Z28.21 3. Short interval between pregnancies affecting , antepartum O09.899 4. Supervision of other normal Z34.80 PRR JARRED: 06/16/2020 Boy surprise name PC:Tone Spouse: Yaya 5. 39 weeks gestation of Z3A.39 Declined genetic, carrier, and ntd screening. [facility] US only. Anatomy US normal 6. Rh negative state in antepartum period O09.899; Z67.91 rhogam given 03/26 at 28 weeks Patient presents IAL, plan expectant management for , pitocin/AROM PRN if needed. Pain management: Plans epidural. GBS negative. Rh negative Rubella immune Management of any complications: None I have reviewed the [facility] and made any clinically relevant updates. Orders Orders: POC Urinalysis 2 Dip (Clinic) Today Coding Level of Care Code OB Routine Diagnoses 37 weeks gestation of Z3A.37 Influenza vaccination declined Z28.21 Short interval between pregnancies affecting , antepartum O09.899 Supervision of other normal Z34.80 39 weeks gestation of Z3A.39 ??Weeks of gestation: 39 weeks Rh negative state in antepartum period O09.899; Z67.91 UPDATE- I have seen the patient and performed any clinically relevant updates to the history and physical exam. Madisyn Fall MD
--- NOTE | 2020-06-13 05:21 | PCM.OPRPT ---
Problem List (1) Active labor at term Status: Acute (2) 37 weeks gestation of Status: Acute Comment: covid testing ordered 05/26/20c (scheduled 06/11/2020 at 09:55) (3) Influenza vaccination declined Status: Acute (4) Status: Acute Qualifiers: Comment: Declined genetic, carrier, and ntd screening. [facility] US only. Anatomy US normal (5) Rh negative state in antepartum period Status: Acute Comment: rhogam given 03/26 at 28 weeks (6) Short interval between pregnancies affecting , antepartum Status: Acute (7) Supervision of other normal Status: Acute Comment: PRR JARRED: 06/16/2020 Boy surprise name PC:Tone Spouse: Yaya Vaginal Delivery Maternal Presentation: Active Labor 30-year-old G2, P1 at 39 weeks gestation admitted in active labor. Patient made rapid cervical change to complete dilation without augmentation. Amniotic Membrane Rupture Type: Spontaneous Amniotic Fluid Description: Thick meconium Final JARRED: 06/16/20 Gestational age: 39 Weeks and 4 Days Date of Procedure: 06/13/20 Pre-Operative Diagnosis: Term , active labor Post-Operative Diagnosis: same Surgery/ Procedure Performed: Spontaneous Vaginal Delivery Type of Anesthesia: Epidural Description of Procedure: Patient began pushing and delivered the head in the NENA presentation. The head was delivered atraumatically and a tight nuchal cord was noted and delivered through. The anterior and posterior shoulders delivered without complication followed by the rest of the infant and the infant was placed on the maternal abdomen. Delayed cord clamping was employed for approximately 60 seconds. Cord was clamped and cut and gentle traction was applied to the cord and the placenta delivered spontaneously immediately following it was noted to be intact with three-vessel cord. The perineum and vagina were inspected and a small periurethral laceration was noted and repaired with figure of 8 suture of 3-0 Vicryl Rapide. EBL was 100 cc. Patient and infant tolerated delivery well. Presentation: Vertex, NENA Placental Delivery Description: Spontaneous Placenta Disposition: [facility] Cord Vessel Description: 3 Vessels Cord Entanglement: Around neck x 1, tight Infant A gender: Male (1 minute): 9 (5 minute): 9 Episiotomy Description: None Laceration: Periurethral Extnsion/lac Medications given after delivery: IV Pitocin Complications: None Multi Select Codes - Urinary/Genital Urinary/Genital CPT Codes: 21584 Vaginal Delivery [facility]
[2020-06-13] MEDS: Acetaminophen 500 MG Tablet 1000 MG PO ×2 (08:42→18:38)
[2020-06-13] MEDS: Naproxen 250 MG Tablet 500 MG PO (20:18)
[2020-06-14 00:04] VITALS: BP 129/77; PULSE 63; RESP 16; TEMP 36.4
[2020-06-14] MEDS: Acetaminophen 500 MG Tablet 1000 MG PO ×2 (02:30→11:06)
[2020-06-14 04:26] VITALS: BP 107/63; PULSE 57; RESP 14; TEMP 36.8
--- NOTE | 2020-06-14 08:13 | DCINST_ITS ---
Discharge Diet: No Restrictions Discharge Activity: Return to Normal Activity, May not drive while taking narcotic pain medications., May Shower May resume sexual activity in: 4-6 weeks Additional Activity Instructions:: Nothing in the vagina for 4-6 weeks. You may return to work/school in 6 weeks. Call your doctor if your incision/area has: Continuous Slow Oozing, Sudden Increased Bleeding, Increased Pain/ Swelling, Increased Redness, Foul Smelling Discharge Additional Instructions: If you experience any of the following, contact your healthcare provider. * Bleeding that soaks a pad every hour for 2 hours * Fever 100.4 or higher * Unrelieved incision or abdominal pain * Swelling, redness, discharge or bleeding from your incision or episiotomy site * Your incision begins to separate * Problems urinating (including inability to urinate or burning while urinating). * Visual changes * Severe headache * Flu-like symptoms * Pain or redness in one of both of your breasts * Pain, warmth, tenderness or swelling in your legs, especially the calf area * Frequent nausea and vomiting * Symptoms of depression or anxiety If you experience any of the following, call 911 or go to the nearest Emergency Room. * Chest pain * Problems breathing * Seizure activity * Partial or complete paralysis of a body part, slurred speech, weakness or drooping of the face, or a sudden inability to walk or hold your balance Allergies/Adverse Reactions: Allergies No Known Allergies Allergy (Verified 06/13/20 01:40) Medications to take at Discharge vitamin#30 30 mg iron-10 mg iron-folic acid 1 mg-omg3 capsule 1 cap PO DAILY cap 07/12/18 When: Call to make an appointment with your doctor in 6 weeks. If you had elevated Blood Pressure or 4th degree laceration you will need to be seen in 2 weeks. Primary Care Physician: Care Physician,No Primary [Primary Care Provider] - Test Results: Test results from this visit will be discussed in further detail at your follow- up appointment, if applicable.
--- NOTE | 2020-06-14 08:15 | PCM.PN.OB ---
Patient Problems: Active and Suspected Problems (Last Reviewed 06/11/20 @ 09:[address]) Active labor at term (Acute) 37 weeks gestation of (Acute) covid testing ordered 05/26/20c (scheduled 06/11/2020 at 09:55) Influenza vaccination declined (Acute) Short interval between pregnancies affecting , antepartum (Acute) Supervision of other normal (Acute) PRR JARRED: 06/16/2020 Boy surprise name PC:Tone Spouse: Yaya (Acute) Declined genetic, carrier, and ntd screening. [facility] US only. Anatomy US normal Rh negative state in antepartum period (Acute) rhogam given 03/26 at 28 weeks Subjective: Patient doing well without complaints. Tolerating PO. Ambulating and voiding without difficulty. Breast feeding well. Denies chest pain, shortness of breath, calf pain/swelling, fevers, chills, lightheadedness. - Physical Exam Vitals/I&O's: Vital Signs Temp Pulse Resp BP Pulse Ox 98.3 F 57 L 14 107/63 97 06/14/20 04:26 06/14/20 04:26 06/14/20 04:26 06/14/20 04:26 06/13/20 11:45 Oxygen Delivery Method Room Air Weight: 153 lb 0.013 oz Body Mass Index (BMI) 25.4 Intake and Output for Last 24 Hours 06/12/20 06/13/20 06/14/20 23:59 23:59 23:59 Intake Total 1540 / 1540 Output Total 2200 / 2200 Balance -660 / -660 General: Alert, Oriented x3, Cooperative, No apparent distress, Well developed, Well nourished HEENT: Atraumatic, PERRLA, EOMI, Normocephalic Neck: Supple, No JVD Lungs: Normal air movement Cardiovascular: Regular rate Abdomen: Soft, Non Tender, Non-Distended Extremities: No edema, No Calf Tenderness Neurological: Cranial nerves II-XII grossly intact, Neuro grossly intact Psych/Mental Status: Normal Affect, Appropriate Current Medications Acetaminophen (Acetaminophen 500 Mg Tablet) 1,000 mg PO Q8H PRN PRN PRN Reason: Pain Score 1-3 Last Admin: 06/14/20 02:30 Dose: 1,000 mg Documented by: Bisacodyl (Bisacodyl 10 Mg Suppository) 10 mg RECTAL UD PRN PRN Reason: If no BM Dibucaine (Dibucaine 30 Gm Tube) 1 applic TOPICAL TID PRN PRN; Protocol PRN Reason: Discomfort Hydrocortisone (Hydrocortisone 2.5% Crm) 1 applic TOPICAL TID PRN PRN; Protocol PRN Reason: Discomfort Methylergonovine Maleate (Methylergonovine 0.2 Mg/Ml Ampul) 0.2 mg IM X1 PRN PRN Reason: Excess bleeding/uterine atony Naproxen (Naproxen 250 Mg Tablet) 500 mg PO Q8H PRN PRN PRN Reason: Pain Score 1-3 Last Admin: 06/13/20 20:18 Dose: 500 mg Documented by: Ondansetron HCl (Ondansetron 4 Mg/2 Ml Vial) 4 mg IV Q4H PRN PRN PRN Reason: Nausea Oxycodone HCl (Oxycodone 5 Mg Tablet) 5 - 10 mg PO Q4H PRN PRN PRN Reason: Pain Score 4-10 Senna/Docusate Sodium (Senna/Docusate Sodium 1 Tablet) 1 - 2 tablet PO DAILY PRN PRN PRN Reason: Constipation Simethicone (Simethicone 80 Mg Tablet) 80 mg PO PCHS PRN PRN Reason: Indigestion/Stomach pain Sodium Chloride (0.9% Saline Lock 10 Ml Syringe) 5 - 15 ml IV UD PRN PRN Reason: SALINE FLUSH Medical Necessity - Tobacco Use Smoking Status: Never smoker Assessment/Plan All Active Problems (Last Reviewed 06/11/20 @ 09:[address]) Active labor at term (Acute) 37 weeks gestation of (Acute) Influenza vaccination declined (Acute) Short interval between pregnancies affecting , antepartum (Acute) Supervision of other normal (Acute) (Acute) Rh negative state in antepartum period (Acute) Normal Anatomy scan (Resolved) (Resolved) Supervision of normal (Resolved) Urine culture positive (Resolved) s/p PPD # 1 1. routine post delivery care 2. breast feeding- support given 3. rh negative 4. rubella immune
[2020-06-14] MEDS: Naproxen 250 MG Tablet 500 MG PO (08:19)
[2020-06-14 08:21] VITALS: BP 108/71; PULSE 60; RESP 18; TEMP 36.6
== END 2020-06-14 11:40 | disposition home or self-care (01) | DRG 807 ==
LOC: WPOUT 01:34 → WP 01:35
PROVIDERS: Admitting Provider Obstetrics & Gynecology; Visit Provider Obstetrics & Gynecology
DX: O77.0 Labor and delivery complicated by meconium in amniotic fluid (principal); Z37.0 Single live birth; O71.82 Other specified trauma to perineum and vulva; O69.1XX0 Labor and delivery complicated by cord around neck, with compression, not applicable or unspecified; Z3A.39 39 weeks gestation of pregnancy
CPT/HCPCS: 59025; 59050; 85025; 85461; 86850; 86900; 86901; 90384; 99218; J7120; G0378; J2790